=== PATIENT | male | born 1935 | race Caucasian/White ===

== ENCOUNTER → 2019-02-18 | Outpatient (REF) | payer MEDICARE ==
[~2019-02-18] MED LIST: ACET-907 PO; CALCTAB6 PO; OMEP-221 PO; OMEP40CA97 PO; RA K500C PO; RA T500C2 PO; VITMTA PO
[2019-02-18 13:01] LABS: BASO % 0.5 % (0.0-1.0); EOS % 0.6 % (0.0-3.0); HEMATOCRIT 49.1 % (42.0-52.0); MEAN CORPUSCULAR HEMOGLOBIN 32.5 pg (27.0-33.0); MEAN CORPUSCULAR HGB CONC 32.6 g/dl (32.0-36.5); MEAN CORPUSCULAR VOLUME 99.6 fl (80.0-96.0); MONO % 15.4 % (0.0-5.0); NEUTROPHILS # 3.5 10^3/uL (1.5-8.5); NEUTROPHILS % 53.2 % (36.0-66.0); PLATELET COUNT, AUTOMATED 219 10^3/uL (150-450); RED BLOOD COUNT 4.93 10^6/uL (4.30-6.10); WHITE BLOOD COUNT 6.6 10^3/uL (4.0-10.0)
[2019-02-18 13:55] LABS: ALBUMIN 3.6 GM/DL (3.2-5.2); ALT/SGPT 24 U/L (12-78); BILIRUBIN,TOTAL 0.6 MG/DL (0.2-1.0); BLOOD UREA NITROGEN 18 MG/DL (7-18); CALCIUM LEVEL 9.6 MG/DL (8.8-10.2); CARBON DIOXIDE LEVEL 28 MEQ/L (21-32); CHLORIDE LEVEL 102 MEQ/L (98-107); CREATININE FOR GFR 1.12 MG/DL (0.70-1.30); GLOMERULAR FILTRATION RATE > 60.0 (>35); GLUCOSE, FASTING 84 MG/DL (70-100); POTASSIUM SERUM 4.9 MEQ/L (3.5-5.1); SODIUM LEVEL 137 MEQ/L (136-145)
== END ==
LOC: M LABDRWAD 12:24
PROVIDERS: ATTEND Specialist
DX: K22.719 Barrett's esophagus with dysplasia, unspecified (principal)

== ENCOUNTER 2019-11-13 05:37 | Emergency (ER) | payer MEDICARE ==
[~2019-11-13] VITALS: Ht 172.7 cm; Wt 85.3 kg
[~2019-11-13 05:37] MED LIST changes: +CALC600T63 PO; -CALCTAB6 PO
[2019-11-13] MEDS ORDERED: LIDOCAINE 5% (LIDODERM) PATCH TD ONE (07:00)
[2019-11-13] MEDS ORDERED: LIDO5DIS41 TOP (08:49)
[2019-11-13] MEDS ORDERED: BACL10TA2 PO (09:27)
[2019-11-13] MEDS ORDERED: COLA100C5 PO (09:29)
--- NOTE | 2019-11-13 09:51 | REP ---
KUB: REASON: Clinical constipation. FINDINGS: KUB shows the intestinal gas pattern to be nonspecific. The organ silhouettes insofar as delineated are unremarkable. There is no evidence of free intraperitoneal air. The stool pattern appears to be within normal limits. There are two calcific densities in the mid pelvis, possibly representing cystoliths. IMPRESSION: Nonspecific. Electronically Signed by Cullen Piña DO 11/13/2019 09:55 A
[2019-11-13 10:47] VITALS: BP 145/68
[2019-11-13] MEDS ORDERED: **NOTE PATIENT COMMENT** MISC XX SCH (21:00)
== END 2019-11-13 10:50 | disposition home or self-care (01) ==
LOC: M ED 05:37
DX: S39.012A Strain of muscle, fascia and tendon of lower back, initial encounter (principal); X50.0XXA Overexertion from strenuous movement or load, initial encounter; Y92.9 Unspecified place or not applicable; Y93.9 Activity, unspecified; Y99.9 Unspecified external cause status; K21.9 Gastro-esophageal reflux disease without esophagitis; Z87.442 Personal history of urinary calculi

== ENCOUNTER → 2020-12-15 | Outpatient (CLI) | payer MEDICARE ==
[~2020-12-15] MED LIST changes: +BACL10TA2 PO; +COLA100C5 PO; +LIDO5DIS41 TOP; +OMEP40CA4 PO; -OMEP40CA97 PO
== END ==
LOC: M LABSMTC 10:07
PROVIDERS: ATTEND Internal Medicine Gastroenterology
DX: Z20.822 Contact with and (suspected) exposure to COVID-19 (principal)

== ENCOUNTER → 2021-02-16 | Outpatient (CLI) | payer MEDICARE | LOC: M LABSMTC 10:54 | PROVIDERS: ATTEND Internal Medicine Gastroenterology | DX: Z20.828 Contact with and (suspected) exposure to other viral communicable diseases (principal) ==

== ENCOUNTER → 2021-09-07 | Outpatient (CLI) | payer MEDICARE ==
[~2021-09-07] MED LIST changes: -OMEP-221 PO; +OMEP40CA5 PO
== END ==
LOC: M LABSMTC 09:13
PROVIDERS: ATTEND Ophthalmology
DX: Z20.822 Contact with and (suspected) exposure to COVID-19 (principal)

== ENCOUNTER → 2021-09-17 | Outpatient (CLI) | payer MEDICARE | LOC: M LABSMTC 09:47 | PROVIDERS: ATTEND Internal Medicine Gastroenterology | DX: Z01.812 Encounter for preprocedural laboratory examination (principal); Z20.822 Contact with and (suspected) exposure to COVID-19 ==

== ENCOUNTER → 2022-02-14 | Outpatient (CLI) | payer MEDICARE | LOC: M RAD 11:23 | PROVIDERS: ATTEND Psychiatry & Neurology Neurology | DX: Z86.73 Personal history of transient ischemic attack (TIA), and cerebral infarction without residual deficits (principal) ==